=== PATIENT | male | born 1995 | race Caucasian/White ===

== ENCOUNTER 2016-11-07 18:52 | Emergency (ER) | payer BC ==
[~2016-11-07] VITALS: Ht 165.1 cm; Wt 67.1 kg
[2016-11-07 23:29] VITALS: BP 140/98
== END 2016-11-07 23:29 | disposition home or self-care (01) ==
LOC: ED 18:52
DX: Z00.00 Encounter for general adult medical examination without abnormal findings (principal)

== ENCOUNTER 2017-04-20 04:17 | Emergency (ER) | payer BC ==
[2017-04-20 06:02] VITALS: BP 123/92
== END 2017-04-20 06:02 | disposition home or self-care (01) ==
LOC: ED 04:17
DX: S06.0X0A Concussion without loss of consciousness, initial encounter (principal); V43.92XA Unspecified car occupant injured in collision with other type car in traffic accident, initial encounter; Y93.89 Activity, other specified; Y99.8 Other external cause status; Y92.89 Other specified places as the place of occurrence of the external cause

== ENCOUNTER 2017-12-22 15:29 | Emergency (ER) | payer BC ==
[~2017-12-22] VITALS: Ht 165.1 cm; Wt 80.7 kg
[2017-12-22 15:36] VITALS: Ht 165.1 cm; Wt 80.7 kg
[2017-12-22 18:32] VITALS: BP 105/46
== END 2017-12-22 18:32 | disposition home or self-care (01) ==
LOC: ED 15:29
DX: M51.37 Other intervertebral disc degeneration, lumbosacral region (principal); J45.909 Unspecified asthma, uncomplicated; F17.210 Nicotine dependence, cigarettes, uncomplicated; Z88.8 Allergy status to other drugs, medicaments and biological substances
CPT/HCPCS: J1885

== ENCOUNTER 2020-04-03 00:10 | Emergency (ER) | payer OTHER | END 2020-04-03 01:41 | disposition other institution (70) | LOC: ED 00:10 | DX: Z02.89 Encounter for other administrative examinations (principal) ==

== ENCOUNTER 2020-04-03 00:10 | Emergency (ER) | payer BC ==
[~2020-04-03] VITALS: Ht 167.6 cm; Wt 72.6 kg
[2020-04-03 00:13] VITALS: Ht 167.6 cm; Wt 72.6 kg
[2020-04-03 01:41] VITALS: BP 107/73
== END 2020-04-03 01:41 | disposition other institution (70) ==
LOC: ED 00:10
DX: R07.89 Other chest pain (principal); F17.210 Nicotine dependence, cigarettes, uncomplicated; I10 Essential (primary) hypertension; J45.909 Unspecified asthma, uncomplicated; Z91.030 Bee allergy status
CPT/HCPCS: Q0092